=== PATIENT | male | born 1990 | race Caucasian/White ===

== ENCOUNTER 2017-09-02 13:26 | Emergency (ER) | payer SELFPAY ==
[~2017-09-02 13:26] MED LIST: CEPH500C3 PO
[2017-09-02 13:29] VITALS: BP 140/73; PULSE 69; RESP 18; TEMP 97.5; O2SAT 99
--- NOTE | 2017-09-02 14:07 | PD ---
HPI Chief Complaint: Injury Time Seen by Provider: 13:47 Travel History International Travel<30 days: No Contact w/Intl Traveler<30days: No Traveled to known affect area: No History of Present Illness HPI 27-year-old male history of chronic right shoulder pain presents to the emergency room for evaluation of acute on chronic symptoms. States he woke up with the pain and believes he may have slept on her shoulder wrong. Pain is worsened with internal and external rotation. No significant pain with any other range of motion. No pain at rest. He has not taken anything or done anything for her symptoms. States he believes it started after injury in high school. He has had no recent injuries. Denies paresthesias. Denies chronic medical conditions or daily medications. [facility] Social History Alcohol Use: No Tobacco Use: No Substance Use: No Allergies-Medications (Allergen,Severity, Reaction): Coded Allergies: No Known Allergies (Unverified , 01/03/16) Reported Meds & Prescriptions Reported Meds & Active Scripts Active Keflex (Cephalexin Monohydrate) 500 Mg Cap 500 Mg PO Q6 Review of Systems Except as stated in HPI: all other systems reviewed are Neg Physical Exam Narrative GENERAL: Well-nourished, well-developed male in no acute distress. Afebrile. Ambulatory. SKIN: Focused skin assessment warm/dry. HEAD: Normocephalic. EYES: No scleral icterus. No injection or drainage. NECK: Supple, trachea midline. No JVD or lymphadenopathy. CARDIOVASCULAR: Regular rate and rhythm without murmurs, gallops, or rubs. RESPIRATORY: Breath sounds equal bilaterally. No accessory muscle use. MUSCULOSKELETAL: No cyanosis. No significant edema. No obvious deformity. 2+ radial pulse. Radial, ulnar, and median nerves intact. Full range motion of the right shoulder but with mild pain during internal and external rotation. Data Data Last Documented VS Vital Signs Date Time Temp Pulse Resp B/P (MAP) Pulse Ox O2 Delivery O2 Flow Rate FiO2 09/02/17 13:29 97.5 69 18 140/73 (95) 99 Room Air MDM Medical Decision Making Medical Screen Exam Complete: Yes Emergency Medical Condition: No Medical Record Reviewed: Yes Differential Diagnosis Chronic shoulder pain Narrative Course 27-year-old male presents to the emergency room for evaluation of acute on chronic right shoulder pain. Patient was hoping to get a definitive answer as to the cause. Physical exam is reassuring. No significant edema. No obvious deformity. 2+ radial pulse. Radial, ulnar, and median nerves intact. Full range motion of the right shoulder but with mild pain during internal and external rotation. He was informed that we do not perform emergent MRIs in the emergency room and he'll need to see a primary care physician for outpatient referral to orthopedic surgeon. Patient was given information for [facility]. There are no urgent or emergent medical conditions at this time. A medical screening exam was performed: At the time of evaluation the presenting medical condition was determined not to be of an emergent nature. The patient was given the option of receiving additional care, but declined. Patient was given options for additional community resources from which to obtain care. The Patient Has Been advised to seek medical attention for their presenting complaint. The patient has been advised to return to the ER at any time if an emergent condition develops. Diagnosis Primary Impression: Encounter for medical screening examination Disposition: 01 DISCHARGE HOME Condition: Stable Edith Casey Sep 02, 2017 14:07
== END 2017-09-02 14:18 | disposition left against medical advice (07) ==
LOC: NEPK 13:26
DX: M25.511 Pain in right shoulder (principal)
CPT/HCPCS: 99281